=== PATIENT | female | born 1940 | race Hispanic/Latino ===

== ENCOUNTER → 2018-07-09 | Outpatient (CLI) | payer OTHER ==
[~2018-07-09] MED LIST: AMOX500C2 PO; ASPI81TA40 PO; CLOP75TA32 PO; CYAN100010 PO; FURO20TA4 PO; FURO40TA5 PO; HYDR-4153 PO; ISOS10TA2 PO; LISI-613 PO; LOVA40TA2 PO; METF-446 PO; METO25TA6 PO; POTA20TA82 PO; TRAM50TA4 PO
[2018-07-09 13:38] VITALS: BP 117/68
== END | disposition home or self-care (01) ==
LOC: WHH 10:45
PROVIDERS: ATTEND Podiatrist Foot & Ankle Surgery
DX: I70.235 Atherosclerosis of native arteries of right leg with ulceration of other part of foot (principal); E11.621 Type 2 diabetes mellitus with foot ulcer; L97.511 Non-pressure chronic ulcer of other part of right foot limited to breakdown of skin; I25.10 Atherosclerotic heart disease of native coronary artery without angina pectoris; K21.9 Gastro-esophageal reflux disease without esophagitis; E11.22 Type 2 diabetes mellitus with diabetic chronic kidney disease; I13.0 Hypertensive heart and chronic kidney disease with heart failure and stage 1 through stage 4 chronic kidney disease, or unspecified chronic kidney disease; N18.3 Chronic kidney disease, stage 3 (moderate); I50.21 Acute systolic (congestive) heart failure; E11.42 Type 2 diabetes mellitus with diabetic polyneuropathy; E11.51 Type 2 diabetes mellitus with diabetic peripheral angiopathy without gangrene; I42.9 Cardiomyopathy, unspecified
CPT/HCPCS: 15275; A6207; A6209; Q4133; 15276

== ENCOUNTER 2018-07-19 13:29 | Inpatient (IN) | payer OTHER ==
[~2018-07-19] VITALS: Ht 154.9 cm; Wt 71.6 kg
[2018-07-19 14:54] LABS: BASOPHILS % (AUTO) 0.4 % (0.0-5.0); EOSINOPHILS % (AUTO) 0.7 % (0.0-8.0); HEMATOCRIT 36.8 % (36-48); LYMPHOCYTES % (AUTO) 6.3 % (21.0-51.0); MEAN CORPUSCULAR HEMOGLOBIN 28.8 pg (27.0-33.0); MEAN CORPUSCULAR HGB CONC 32.6 g/dL (32.0-36.0); MEAN CORPUSCULAR VOLUME 88.3 fL (79-99); MONOCYTES % (AUTO) 7.3 % (3.0-13.0); NEUTROPHILS % (AUTO) 85.3 % (40.0-77.0); PLATELET COUNT (AUTO) 209 K/uL (130-400); RED BLOOD CELL COUNT(AUTO) 4.17 MIL/uL (4.00-5.50); RED CELL DISTRIBUTION WIDTH 18.2 % (11.0-15.5); WHITE BLOOD COUNT (AUTO) 10.3 K/uL (4.8-10.8)
[2018-07-19 15:03] LABS: CREATININE 1.7 mg/dL (0.5-1.5)
[2018-07-19] MEDS ORDERED: SODIUM CHLORIDE 0.9% 100 ML IV ONE (15:05)
[2018-07-19] MEDS ORDERED: ZOSYN 3.375GM+NS 50ML 50 ML IV ONE (15:05)
[2018-07-19 15:09] LABS: ALBUMIN 3.2 g/dL (3.5-5.0); BILIRUBIN,TOTAL 0.9 mg/dL (0.2-1.0); POTASSIUM 5.8 mmol/L (3.5-5.1); TOTAL PROTEIN, SERUM 6.7 g/dL (6.0-8.3)
[2018-07-19] MEDS ORDERED: VANCOMYCIN 1GM+NS 250ML 250 ML IV ONE (16:33)
[2018-07-19] MEDS ORDERED: VANCOMYCIN 500MG+NS 100ML 100 ML IV ONE (17:00)
[2018-07-19] MEDS ORDERED: COMPOUND IV REFRIGERATED 1 EACH IVSOLN MISC PRN (17:15)
[2018-07-19] MEDS ORDERED: DEXTROSE 50%-WATER 50 ML DISP.SYRIN IV PRN (17:15)
[2018-07-19] MEDS ORDERED: GLUCAGON 1MG KIT 1 MG ML IM PRN (17:15)
[2018-07-19 18:20] VITALS: BP 103/70
[2018-07-19 19:10] VITALS: BP 105/72
[2018-07-19] MEDS: INSULIN R PO SS1 SQ SCH (20:46)
[2018-07-19 23:15] VITALS: BP 99/68
[2018-07-20] MEDS: ZOSYN 3.375GM+NS 50ML 50 ML IV SCH ×2 (01:36→12:28)
[2018-07-20 03:45] VITALS: BP 103/63
[2018-07-20] MEDS: INSULIN R PO SS1 SQ SCH ×4 (07:30→21:00)
[2018-07-20 07:52] VITALS: BP 102/74
[2018-07-20] MEDS ORDERED: AMOXICILLIN 500 MG CAPSULE PO SCH (10:45)
[2018-07-20] MEDS ORDERED: TRAMADOL HCL 50 MG TABLET PO PRN (10:45)
[2018-07-20] MEDS ORDERED: LOVA40TA2 PO (10:47)
[2018-07-20] MEDS ORDERED: CYAN100010 PO (10:47)
[2018-07-20] MEDS ORDERED: LISI-613 PO (10:47)
[2018-07-20] MEDS ORDERED: TRAM50TA4 PO (10:47)
[2018-07-20] MEDS ORDERED: FURO20TA4 PO (10:47)
[2018-07-20] MEDS ORDERED: ASPI81TA40 PO (10:47)
[2018-07-20] MEDS ORDERED: METF-446 PO (10:47)
[2018-07-20] MEDS ORDERED: AMOX500C2 PO (10:47)
[2018-07-20 11:41] VITALS: BP 121/77
[2018-07-20 14:33] LABS: CREATININE 1.8 mg/dL (0.5-1.5)
[2018-07-20 14:40] LABS: POTASSIUM 5.8 mmol/L (3.5-5.1)
[2018-07-20] MEDS: SODIUM POLYSTYRENE SULFONATE 15 GM/60 ML ML PO SCH (16:09)
[2018-07-20] MEDS: ENOXAPARIN SODIUM 30 MG/0.3 ML SQ SCH (16:10)
[2018-07-20 16:24] VITALS: BP 104/67
[2018-07-20] MEDS ORDERED: LISINOPRIL 20 MG TABLET PO SCH (16:30)
[2018-07-20] MEDS: SODIUM CHLORIDE 0.9% 1000ML 1,000 ML IV SCH (16:35)
[2018-07-20] MEDS: VANCOMYCIN 750MG + NS 250 ML IV SCH ×2 (16:35)
[2018-07-20 19:20] VITALS: BP 109/77
[2018-07-20] MEDS: METFORMIN HCL 500 MG TABLET PO SCH (22:29)
[2018-07-20] MEDS: HYDRALAZINE HCL 25 MG TABLET PO SCH (22:29)
[2018-07-20 23:15] VITALS: BP 104/68
[2018-07-21] MEDS: ZOSYN 3.375GM+NS 50ML 50 ML IV SCH ×2 (00:50→12:08)
[2018-07-21 03:30] VITALS: BP 109/61
[2018-07-21 04:56] LABS: HEMATOCRIT 35.2 % (36-48); MEAN CORPUSCULAR HEMOGLOBIN 28.6 pg (27.0-33.0); MEAN CORPUSCULAR HGB CONC 32.7 g/dL (32.0-36.0); MEAN CORPUSCULAR VOLUME 87.5 fL (79-99); NUCLEATED RED BLOOD CELLS 0.1 % (0.0-0.19); PLATELET COUNT (AUTO) 204 K/uL (130-400); RED BLOOD CELL COUNT(AUTO) 4.02 MIL/uL (4.00-5.50); WHITE BLOOD COUNT (AUTO) 9.3 K/uL (4.8-10.8)
[2018-07-21 05:05] LABS: CREATININE 1.8 mg/dL (0.5-1.5)
[2018-07-21] MEDS: HYDRALAZINE HCL 25 MG TABLET PO SCH ×3 (05:44→18:08)
[2018-07-21] MEDS: INSULIN R PO SS1 SQ SCH ×4 (06:52→21:00)
[2018-07-21 07:17] VITALS: BP 104/58
[2018-07-21] MEDS: SODIUM CHLORIDE 0.9% 1000ML 1,000 ML IV SCH ×2 (07:17→22:33)
[2018-07-21] MEDS: ENOXAPARIN SODIUM 30 MG/0.3 ML SQ SCH (08:38)
[2018-07-21] MEDS: ASPIRIN 81MG TAB.CHEW PO SCH (08:39)
[2018-07-21] MEDS: METFORMIN HCL 500 MG TABLET PO SCH ×2 (08:39→20:26)
[2018-07-21] MEDS: SIMVASTATIN 20 MG TABLET PO SCH (08:39)
[2018-07-21] MEDS: CYANOCOBALAMIN (VITAMIN B-12) 1,000 MCG TABLET PO SCH (08:39)
[2018-07-21] MEDS ORDERED: FUROSEMIDE 20 MG TABLET PO SCH (09:00)
[2018-07-21 11:01] VITALS: BP 111/73
[2018-07-21] MEDS: SODIUM POLYSTYRENE SULFONATE 15 GM/60 ML ML PO SCH (12:09)
[2018-07-21] MEDS: FUROSEMIDE 10 MG/ML 2ML VIAL IV SCH (15:59)
[2018-07-21 16:00] VITALS: BP 118/70
[2018-07-21] MEDS: VANCOMYCIN 750MG + NS 250 ML IV SCH ×2 (16:37)
[2018-07-21 20:00] VITALS: BP 94/65
[2018-07-22] VITALS (7 sets, daily range): BP systolic 99–108; BP diastolic 62–73
[2018-07-22] MEDS: ZOSYN 3.375GM+NS 50ML 50 ML IV SCH ×2 (00:14→11:48)
[2018-07-22] MEDS: FUROSEMIDE 10 MG/ML 2ML VIAL IV SCH ×2 (04:21→17:06)
[2018-07-22] MEDS: HYDRALAZINE HCL 25 MG TABLET PO SCH ×4 (05:39→17:37)
[2018-07-22] MEDS: INSULIN R PO SS1 SQ SCH ×4 (06:49→21:00)
[2018-07-22 08:56] LABS: CREATININE 1.9 mg/dL (0.5-1.5); POTASSIUM 5.2 mmol/L (3.5-5.1)
[2018-07-22] MEDS: ASPIRIN 81MG TAB.CHEW PO SCH (09:40)
[2018-07-22] MEDS: METFORMIN HCL 500 MG TABLET PO SCH (09:40)
[2018-07-22] MEDS: CYANOCOBALAMIN (VITAMIN B-12) 1,000 MCG TABLET PO SCH (09:40)
[2018-07-22] MEDS: SIMVASTATIN 20 MG TABLET PO SCH (09:41)
[2018-07-22] MEDS: ENOXAPARIN SODIUM 30 MG/0.3 ML SQ SCH (09:41)
[2018-07-22] MEDS: CLOPIDOGREL BISULFATE 75 MG TAB PO SCH (09:41)
[2018-07-22] MEDS: BISACODYL 5 MG TABLET.DR PO SCH ×2 (13:08→21:00)
[2018-07-22] MEDS: SODIUM CHLORIDE 0.9% 1000ML 1,000 ML IV SCH (13:57)
[2018-07-22] MEDS: VANCOMYCIN 750MG + NS 250 ML IV SCH ×2 (17:07)
[2018-07-23] MEDS: ZOSYN 3.375GM+NS 50ML 50 ML IV SCH ×2 (01:34→11:53)
[2018-07-23 03:23] VITALS: BP 111/57
[2018-07-23] MEDS: FUROSEMIDE 10 MG/ML 2ML VIAL IV SCH ×2 (04:00→16:14)
[2018-07-23] MEDS: SODIUM CHLORIDE 0.9% 1000ML 1,000 ML IV SCH ×2 (05:21→20:45)
[2018-07-23] MEDS: HYDRALAZINE HCL 25 MG TABLET PO SCH ×4 (06:00→18:00)
[2018-07-23] MEDS: INSULIN R PO SS1 SQ SCH ×4 (06:06→20:05)
[2018-07-23 08:19] VITALS: BP 107/57
[2018-07-23] MEDS: ENOXAPARIN SODIUM 30 MG/0.3 ML SQ SCH (08:37)
[2018-07-23] MEDS: ASPIRIN 81MG TAB.CHEW PO SCH (08:38)
[2018-07-23] MEDS: SIMVASTATIN 20 MG TABLET PO SCH (08:38)
[2018-07-23] MEDS: CYANOCOBALAMIN (VITAMIN B-12) 1,000 MCG TABLET PO SCH (08:38)
[2018-07-23] MEDS: CLOPIDOGREL BISULFATE 75 MG TAB PO SCH (08:38)
[2018-07-23] MEDS: BISACODYL 5 MG TABLET.DR PO SCH ×2 (08:42→20:14)
[2018-07-23 09:41] LABS: CREATININE 1.9 mg/dL (0.5-1.5); POTASSIUM 4.6 mmol/L (3.5-5.1)
[2018-07-23 12:17] VITALS: BP 115/64
[2018-07-23] MEDS: VANCOMYCIN 750MG + NS 250 ML IV SCH ×2 (16:16)
[2018-07-23 16:59] VITALS: BP 110/66
[2018-07-23 19:34] VITALS: BP 116/72
[2018-07-23] MEDS: ISOSORBIDE DINITRATE 10 MG TABLET PO SCH (20:14)
[2018-07-23] MEDS: METOPROLOL TARTRATE 25 MG TAB PO SCH (20:14)
[2018-07-24 00:01] VITALS: BP 108/66
[2018-07-24] MEDS: HYDRALAZINE HCL 25 MG TABLET PO SCH ×5 (00:19→23:01)
[2018-07-24] MEDS: ZOSYN 3.375GM+NS 50ML 50 ML IV SCH ×3 (00:19→23:49)
[2018-07-24 04:20] VITALS: BP 109/71
[2018-07-24] MEDS: FUROSEMIDE 10 MG/ML 2ML VIAL IV SCH ×2 (05:00→16:31)
[2018-07-24] MEDS: INSULIN R PO SS1 SQ SCH ×4 (06:38→20:49)
[2018-07-24 07:00] VITALS: BP 108/68
[2018-07-24] MEDS: BISACODYL 5 MG TABLET.DR PO SCH ×2 (09:27→20:00)
[2018-07-24] MEDS: CYANOCOBALAMIN (VITAMIN B-12) 1,000 MCG TABLET PO SCH (09:27)
[2018-07-24] MEDS: CLOPIDOGREL BISULFATE 75 MG TAB PO SCH (09:27)
[2018-07-24] MEDS: ENOXAPARIN SODIUM 30 MG/0.3 ML SQ SCH (09:28)
[2018-07-24] MEDS: ISOSORBIDE DINITRATE 10 MG TABLET PO SCH ×2 (09:28→20:00)
[2018-07-24] MEDS: ASPIRIN 81MG TAB.CHEW PO SCH (09:28)
[2018-07-24] MEDS: SIMVASTATIN 20 MG TABLET PO SCH (09:28)
[2018-07-24] MEDS: METOPROLOL TARTRATE 25 MG TAB PO SCH ×2 (09:35→19:59)
[2018-07-24 11:13] VITALS: BP 94/61
[2018-07-24] MEDS ORDERED: POTASSIUM CHLORIDE 10MEQ/100ML 100 ML IV PRN (15:00)
[2018-07-24] MEDS ORDERED: LIDOCAINE HCL-MPF 1% 2ML VIAL IVP PRN ×2 (15:00)
[2018-07-24] MEDS ORDERED: POTASSIUM CHLORIDE 20MEQ/100ML 100 ML IV PRN (15:00)
[2018-07-24 16:06] VITALS: BP 110/67
[2018-07-24] MEDS: VANCOMYCIN 750MG + NS 250 ML IV SCH ×2 (16:27)
[2018-07-24 20:14] VITALS: BP 101/60
[2018-07-25] VITALS: BP 99/65
[2018-07-25 04:00] VITALS: BP 110/67
[2018-07-25] MEDS: FUROSEMIDE 10 MG/ML 2ML VIAL IV SCH (04:07)
[2018-07-25 04:41] LABS: CREATININE 2.1 mg/dL (0.5-1.5)
[2018-07-25] MEDS: HYDRALAZINE HCL 25 MG TABLET PO SCH ×3 (06:01→18:00)
[2018-07-25] MEDS: INSULIN R PO SS1 SQ SCH ×4 (06:11→21:00)
[2018-07-25 07:41] VITALS: BP 123/77
[2018-07-25] MEDS: BISACODYL 5 MG TABLET.DR PO SCH ×2 (09:00→19:44)
[2018-07-25] MEDS: CYANOCOBALAMIN (VITAMIN B-12) 1,000 MCG TABLET PO SCH (10:53)
[2018-07-25] MEDS: ISOSORBIDE DINITRATE 10 MG TABLET PO SCH ×2 (11:02→20:24)
[2018-07-25 11:45] VITALS: BP 102/63
[2018-07-25 12:43] LABS: INR 1.23 (0.85-1.15); PROTHROMBIN TIME 12.9 SEC (9.6-11.6)
[2018-07-25] MEDS ORDERED: SODIUM CHLORIDE 0.9% 50 ML IV ONE (14:27)
[2018-07-25] MEDS ORDERED: VANCOMYCIN 1GM+NS 250ML 250 ML IV SCH (15:00)
[2018-07-25] MEDS: ZOSYN 3.375GM+NS 50ML 50 ML IV SCH (15:09)
[2018-07-25 16:00] VITALS: BP 117/64
[2018-07-25] MEDS: FUROSEMIDE 40 MG TABLET PO SCH (17:48)
[2018-07-25] MEDS: CLOPIDOGREL BISULFATE 75 MG TAB PO SCH (18:22)
[2018-07-25] MEDS: METOPROLOL TARTRATE 25 MG TAB PO SCH ×2 (18:22→20:24)
[2018-07-25] MEDS: SIMVASTATIN 20 MG TABLET PO SCH (18:22)
[2018-07-25] MEDS: ASPIRIN 81MG TAB.CHEW PO SCH (18:22)
[2018-07-25] MEDS: ENOXAPARIN SODIUM 30 MG/0.3 ML SQ SCH (18:24)
[2018-07-25 20:13] VITALS: BP 112/55
[2018-07-26] VITALS: BP 102/56
[2018-07-26] MEDS: ZOSYN 3.375GM+NS 50ML 50 ML IV SCH (01:02)
[2018-07-26 04:25] VITALS: BP 101/65
[2018-07-26] MEDS: HYDRALAZINE HCL 25 MG TABLET PO SCH ×2 (05:32)
[2018-07-26] MEDS: INSULIN R PO SS1 SQ SCH (06:36)
[2018-07-26 07:43] VITALS: BP 113/65
[2018-07-26] MEDS: BISACODYL 5 MG TABLET.DR PO SCH (08:29)
[2018-07-26] MEDS: ASPIRIN 81MG TAB.CHEW PO SCH (08:31)
[2018-07-26] MEDS: METOPROLOL TARTRATE 25 MG TAB PO SCH (08:31)
[2018-07-26] MEDS: FUROSEMIDE 40 MG TABLET PO SCH (08:31)
[2018-07-26] MEDS: ISOSORBIDE DINITRATE 10 MG TABLET PO SCH (08:31)
[2018-07-26] MEDS: CYANOCOBALAMIN (VITAMIN B-12) 1,000 MCG TABLET PO SCH (08:31)
[2018-07-26] MEDS: SIMVASTATIN 20 MG TABLET PO SCH (08:31)
[2018-07-26] MEDS: ENOXAPARIN SODIUM 30 MG/0.3 ML SQ SCH (08:32)
[2018-07-26] MEDS: CLOPIDOGREL BISULFATE 75 MG TAB PO SCH (08:37)
[2018-07-27] MEDS ORDERED: SODIUM BICARB [NEONATAL] 4.2% 10ML SYG ONE (21:42)
[2018-07-28] MEDS ORDERED: POTA20TA82 PO (10:24)
[2018-07-28] MEDS ORDERED: METO25TA6 PO (10:24)
[2018-07-28] MEDS ORDERED: ISOS10TA2 PO (10:24)
[2018-07-28] MEDS ORDERED: FURO40TA5 PO (10:24)
[2018-07-28] MEDS ORDERED: HYDR-4153 PO (10:24)
[2018-07-28] MEDS ORDERED: CLOP75TA32 PO (10:24)
== END 2018-07-26 10:20 | DRG 871 ==
LOC: EDH 13:29 → EDHIP 16:30 → 4BH 18:20
PROVIDERS: ADMIT Internal Medicine Critical Care Medicine; ATTEND Internal Medicine Critical Care Medicine
PROC: 02HV33Z Insertion of Infusion Device into Superior Vena Cava, Percutaneous Approach (ICD-10-PCS; principal; 2018-07-25)
DX: A41.9 Sepsis, unspecified organism (principal); I50.43 Acute on chronic combined systolic (congestive) and diastolic (congestive) heart failure; I96 Gangrene, not elsewhere classified; E11.52 Type 2 diabetes mellitus with diabetic peripheral angiopathy with gangrene; N17.9 Acute kidney failure, unspecified; N18.4 Chronic kidney disease, stage 4 (severe); I13.0 Hypertensive heart and chronic kidney disease with heart failure and stage 1 through stage 4 chronic kidney disease, or unspecified chronic kidney disease; L03.90 Cellulitis, unspecified; I25.10 Atherosclerotic heart disease of native coronary artery without angina pectoris; E11.621 Type 2 diabetes mellitus with foot ulcer; R65.20 Severe sepsis without septic shock; E78.5 Hyperlipidemia, unspecified; L97.519 Non-pressure chronic ulcer of other part of right foot with unspecified severity; E11.22 Type 2 diabetes mellitus with diabetic chronic kidney disease; E11.65 Type 2 diabetes mellitus with hyperglycemia; E87.5 Hyperkalemia; I25.5 Ischemic cardiomyopathy; I27.29 Other secondary pulmonary hypertension; I27.81 Cor pulmonale (chronic); J45.909 Unspecified asthma, uncomplicated; M19.90 Unspecified osteoarthritis, unspecified site; I25.2 Old myocardial infarction; Z74.01 Bed confinement status; Z91.19 Patient's noncompliance with other medical treatment and regimen; Z87.891 Personal history of nicotine dependence; Z86.73 Personal history of transient ischemic attack (TIA), and cerebral infarction without residual deficits; Z83.3 Family history of diabetes mellitus; Z82.49 Family history of ischemic heart disease and other diseases of the circulatory system
CPT/HCPCS: 36415; 71045; 73630; 80048; 80053; 80202; 82948; 83036; 83880; 84132; 85025; 85027; 85610; 87040; 93005; 93306; 93926; 97039; C1894; J1650; J1815; J1940; J2543; J3370; J3490; J7030